=== PATIENT | male | born 1990 | race Two or more races ===

== ENCOUNTER 2016-11-29 16:09 | Emergency (ER) | payer MEDICAID ==
[~2016-11-29] VITALS: Ht 172.7 cm; Wt 90.7 kg
[2016-11-29 17:12] VITALS: BP 129/74
== END 2016-11-29 17:50 | disposition home or self-care (01) ==
LOC: ER 16:11
DX: F41.9 Anxiety disorder, unspecified (principal)
CPT/HCPCS: 93005; 99283; A4606; Z7610